=== PATIENT | female | born 1980 | race Caucasian/White ===

== ENCOUNTER → 2022-10-07 16:11 | Outpatient (BNVA) | payer SELFPAY | PROVIDERS: Visit Provider Family Medicine | DX: R68.89 Other general symptoms and signs (principal); E66.01 Morbid (severe) obesity due to excess calories; N92.6 Irregular menstruation, unspecified | CPT/HCPCS: 81025 ==

== ENCOUNTER → 2022-12-16 11:18 | Outpatient (BNVA) | payer SELFPAY | PROVIDERS: PCP Family Medicine; Visit Provider Family Medicine | DX: E66.01 Morbid (severe) obesity due to excess calories (principal); R22.43 Localized swelling, mass and lump, lower limb, bilateral; Z51.81 Encounter for therapeutic drug level monitoring | CPT/HCPCS: 80307 ==